=== PATIENT | female | born 1975 | race African-American/Black ===

== ENCOUNTER 2017-11-14 20:18 | Emergency (ER) | payer SELFPAY ==
[2017-11-14 20:36] VITALS: BP 164/100; PULSE 74; TEMP 98; BMI 33.4
== END 2017-11-14 22:59 | disposition left against medical advice (07) ==
LOC: JER 20:18
DX: Z53.21 Procedure and treatment not carried out due to patient leaving prior to being seen by health care provider (principal)
CPT/HCPCS: 99281-25

== ENCOUNTER 2018-08-22 09:43 | Emergency (ER) | payer SELFPAY ==
[2018-08-22 10:16] VITALS: TEMP 98.5; BMI 31.9
--- NOTE | 2018-08-22 10:54 | PDOC ---
Attending Attestation - HPI HPI: 08/22/18 12:38 The patient is a 42 year old female [id number], with a significant PMH of HTN and asthma, who presents to the emergency department complaining of abdominal cramping that began last night. The patient states the constant, sharp, and non radiating abdomen pain is located to the right lower quadrant with a severity of 7/10. She endorses associated symptoms of nausea, vomiting and chills. She states she took a test 1 week ago which was negative and her last menstrual period was 07/13. She is currently experiencing vaginal bleeding. The patient denies any vaginal odor or pain. The patient denies chest pain, shortness of breath, headache and dizziness. Denies fever, diarrhea and constipation. Denies dysuria, frequency, urgency and hematuria. Allergies: Shellfish and iodine Past surgical history: None reported Social history: None reported PCP: None reported Documentation prepared by Hal Fall, acting as pediatric medical assistant for Sruthi Nevarez DO, MD. - Physicial Exam PE: 08/22/18 12:39 GENERAL: Awake, alert, and fully oriented, in no acute distress HEAD: No signs of trauma EYES: PERRLA, EOMI, sclera anicteric, conjunctiva clear ENT: Auricles normal inspection, hearing grossly normal, nares patent, oropharynx clear without exudates. Moist mucosa NECK: Normal ROM, supple, no lymphadenopathy, JVD, or masses LUNGS: Breath sounds equal, clear to auscultation bilaterally. No wheezes, and no crackles HEART: Regular rate and rhythm, normal S1 and S2, no murmurs, rubs or gallops ABDOMEN: Soft, nontender, normoactive bowel sounds. No guarding, no rebound. No masses. GENITOURINARY: Cervical os is slightly open and blood in the vaginal vault. EXTREMITIES: Normal range of motion, no edema. No clubbing or cyanosis. No cords, erythema, or tenderness NEUROLOGICAL: Cranial nerves II through XII grossly intact. Normal speech, normal gait SKIN: Warm, Dry, normal turgor, no rashes or lesions noted Documentation prepared by Hal Fall, acting as pediatric medical assistant for Sruthi Nevarez DO, MD. <Hal Fall - Last Filed: 08/22/18 12:38> - Resident Resident Name: Jevon Springer - ED Attending Attestation I have performed the following: I have examined & evaluated the patient, The case was reviewed & discussed with the resident, I agree w/resident's findings & plan, Exceptions are as noted - Medical Decision Making 08/22/18 10:54 I, Dr. Sruthi Nevarez, DO, attest that this document has been prepared under my direction and personally reviewed by me in its entirety. I further attest, that it accurately reflects all work, treatment, procedures and medical decision -making performed by me. 08/22/18 11:35 a/p: 42yo female with FDLMP 07/13 -pt with pelvic cramping -vaginal bleeding started today -concern for DUB vs early preg with bleeding vs miscarriage -will send labs, ua, ucx, ucg, beta, tvus -will monitor and reassess 08/22/18 12:23 urine preg and beta are negative pt updated on labs 08/22/18 13:42 pt with elevated bp will start [facility] has appt with SLIP COVER OPERATOR for stable for dc to home <Sruthi Nevarez - Last Filed: 08/22/18 13:43>
--- NOTE | 2018-08-22 11:13 | PDOC ---
History of Present Illness - General Chief Complaint: Pain, Acute Stated Complaint: ABD PAIN Time Seen by Provider: 08/22/18 10:53 History Source: Patient Exam Limitations: No Limitations - History of Present Illness Initial Comments: 42 yo F hx of asthma, HTN presents w R sided abdominal pain since 9 pm last night. sudden onset, sharp pain, subsided by itself, then again at 4 am she awoke from the pain had nausea, vomiting which she says was non-bilious but contained streaks of blood at one point. She hasn't vomited since 4 am. 7/10 constant pain in the RLQ. She denies any fevers, endorses chills. No diarrhea, no Dysuria. She said she missed her period 3 weeks ago and hasn't come. She is on a contraception implant. There is blood coming out of her vagina. - 1 miscarriage, 1 . PCP: None Social Hx: Denies smoking, drinking, or other substance usage Allergies: Shellfish and iodine Past History - Past Medical History Allergies/Adverse Reactions: Allergies Allergy/AdvReac Type Severity Reaction Status Date / Time iodine Allergy Verified 08/22/18 10:13 shellfish derived Allergy Verified 08/22/18 10:13 Home Medications: Ambulatory Orders Amlodipine Besylate [Norvasc -] 5 mg PO DAILY #7 tablet 08/22/18 COPD: No - Suicide/Smoking/Psychosocial Hx Smoking History: Never smoked Have you smoked in the past 12 months: No Hx Alcohol Use: No Drug/Substance Use Hx: No Review of Systems - Review of Systems Able to Perform ROS?: Yes Constitutional: No: Chills, Diaphoresis, Fever, Loss of Appetite, Malaise HEENTM: No: Blurred Vision, Double Vision Respiratory: No: Cough, Wheezing, Productive cough Cardiac (ROS): No: Chest Pain, Edema, Irregular Heart Rate ABD/GI: Yes: Nausea, Poor Fluid Intake, Abdominal cramping. No: Abdominal Distended, Constipated, Diarrhea, Vomiting : Yes: Burning, Dysuria, Discharge (blood), Hematuria. No: Frequency, Flank Pain Musculoskeletal: No: Back Pain, Muscle Pain, Neck Pain Integumentary: No: Bruising, Change in Color, Change in Hair/Nails, Dryness, Erythema Neurological: Yes: Headache. No: Numbness, Paresthesia, Seizure, Tingling Psychiatric: Yes: Anxiety, Depression, Stressors, Sleep Pattern Change Endocrine: No: Excessive Sweating, Flushing Hematologic/Lymphatic: No: Anemia, Blood Clots, Easy Bleeding *Physical Exam - Vital Signs Last Vital Signs Temp Pulse Resp BP Pulse Ox 98.5 F 89 16 175/109 H 99 08/22/18 10:14 08/22/18 10:14 08/22/18 10:14 08/22/18 10:14 08/22/18 10:14 - Physical Exam General Appearance: Yes: Nourished, Appropriately Dressed, Obese. No: Apparent Distress HEENT: positive: EOMI, JC, Normal ENT Inspection, Normal Voice Neck: positive: Supple. negative: Rigid Respiratory/Chest: positive: Lungs Clear, Normal Breath Sounds. negative: Crackles Cardiovascular: positive: Regular Rhythm, Regular Rate, S1, S2. negative: Edema , JVD Vascular Pulses: Dorsalis-Pedis (R): 2+, Doralis-Pedis (L): 2+ Female Pelvic Exam: positive: normal external exam, normal adnexa, normal size ovaries, discharge (Blood), vaginal bleeding, other (Cervix is mildly open - 1 fingerwidth). negative: cervical os closed, CMT, lesions, Bartholin mass, adnexal tenderness Gastrointestinal/Abdominal: positive: Normal Bowel Sounds, Tender (RLQ), Soft. negative: Guarding, Rebound Rectal Exam: positive: deferred Lymphatic: negative: Adenopathy Musculoskeletal: positive: Normal Inspection. negative: CVA Tenderness, Decreased Range of Motion Extremity: positive: Normal Capillary Refill, Normal Inspection, Normal Range of Motion Integumentary: positive: Normal Color, Dry, Warm Neurologic: positive: pocketbook maker II-XII NML intact, Fully Oriented, Alert, Normal Response, Motor Strength 5/5, Depressed Affect Moderate Sedation - Procedure Monitoring Vital Signs: Procedure Monitoring Vital Signs Temperature 98.5 F 08/22/18 10:14 Pulse Rate 89 08/22/18 10:14 Respiratory Rate 16 08/22/18 10:14 Blood Pressure 175/109 H 08/22/18 10:14 O2 Sat by Pulse Oximetry (%) 99 08/22/18 10:14 ED Treatment Course - LABORATORY CBC & Chemistry Diagram: 08/22/18 11:40 08/22/18 11:40 Medical Decision Making - Medical Decision Making 42 yo F hx of asthma, HTN presents w R sided abdominal pain since 9 pm last night. DDx IBNLT: vs ectopic vs ruptured vs inevitable, threatened, UTI/pylo, appendicitis Plan: Cbc, Cmp, Type and screen, ua, uc, hcg, trichomonas, TVUS, IV hydration, re-assess. I placed a 22 gauge i the left AC and sent labs. - Labs unremarkable. - HCG negative - Blood in vaginal vault on pelvic exam - US showed no acute pathology. Repeat BP is 151/107 - She has a INFORMATION SERVICES MANAGER appt scheduled with Dr. Lopez on . - Patient says she will schedule follow up w pcp this week. *DC/Admit/Observation/Transfer Diagnosis at time of Disposition: Pelvic pain, Dysfunctional uterine bleeding - Discharge Dispostion Disposition: HOME Condition at time of disposition: Improved Decision to Admit order: No - Prescriptions Prescriptions: Amlodipine Besylate [Norvasc -] 5 mg PO DAILY #7 tablet - Referrals Referrals: [facility] [Provider Group] - Patient Instructions Printed Discharge Instructions: DI for Abnormal Uterine Bleeding Additional Instructions: You came into the ER with lower abdominal pain. We looked at your blood and urine and found no problems. You are not . We also did an ultrasound which showed no problems. It is important to have a follow up scheduled with your childcare attendant this week. You blood pressure is elevated here so we are giving you a medication to take for the next week until you are able to schedule an appointment with a new primary care doctor. - We are sending a medication to your pharmacy to take for the next week once a day to help with your blood pressure. [facility] - please call them up to have an appointment scheduled. Please come back to the ER if your pain worsens, your start vomiting, or have any other new or worsening concerns. Thank you for coming to the [facility] ER. We hope you feel better soon! Print Language: TAMAZIGHT - Post Discharge Activity
[2018-08-22 11:40] LABS: URINE APPEARANCE SLCLOUDY; URINE BILIRUBIN NEGATIVE (<2.0 mg/dL); URINE COLOR LTYELLOW; URINE GLUCOSE (UA) NEGATIVE (NEGATIVE); URINE KETONE NEGATIVE (NEGATIVE); URINE LEUK ESTERASE NEGATIVE (NEGATIVE); URINE NITRITE NEGATIVE (NEGATIVE); URINE PROTEIN NEGATIVE (NEGATIVE); URINE UROBILINOGEN NEGATIVE mg/dL (0.2-1.0)
[2018-08-22 11:41] LABS: HCG,QUALITATIVE URINE Negative
[2018-08-22] MEDS ORDERED: SODIUM CHLORIDE 0.9% 500 ML INFUS.BAG IV ONE (11:44)
[2018-08-22 11:45] LABS: HEMATOCRIT 39.3 % (32.4-45.2); HEMOGLOBIN 13.8 GM/dL (10.7-15.3); LYMPH % 17.5 % (8-40); MCH 29.9 pg (25.7-33.7); MCHC 35.1 g/dl (32.0-36.0); MEAN CELL VOLUME 85.1 fl (80-96); MEAN PLT VOLUME 10.5 fl (7.5-11.1); MONO % 4.7 % (3.8-10.2); NEUT % 75.8 % (42.8-82.8); PLATELET COUNT 300 K/MM3 (134-434); RBC 4.62 M/mm3 (3.60-5.2); WHITE BLOOD COUNT 10.5 K/mm3 (4.0-10.0)
[2018-08-22 11:45] LABS: EPI CELLS MANY /HPF (FEW); URINE BACTERIA RARE /hpf (NONE SEEN); URINE MUCUS RARE
[2018-08-22] MEDS ORDERED: ACETAMINOPHEN 325 MG TABLET (FP) PO ONE (11:49)
[2018-08-22] MEDS ORDERED: ACETAMINOPHEN 325 MG TABLET (FP) ONE (12:04)
[2018-08-22 12:07] LABS: ALBUMIN 3.9 g/dl (3.4-5.0); ALK PHOS 100 U/L (45-117); ANION GAP 7 MMOL/L (8-16); BILIRUBIN,TOTAL 0.5 mg/dL (0.2-1); BLOOD UREA NITROGEN 8 mg/dL (7-18); CALCIUM 9.1 mg/dL (8.5-10.1); CHLORIDE 105 mmol/L (98-107); CO2 27 mmol/L (21-32); CREATININE 0.9 mg/dL (0.55-1.3); GLUCOSE,RANDOM 92 mg/dL (74-106); SGOT/AST 20 U/L (15-37); SGPT/ALT 19 U/L (13-61); SODIUM 139 mmol/L (136-145); TOT PROT 8.5 g/dl (6.4-8.2)
[2018-08-22 15:20] VITALS: BP 179/98; PULSE 88
== END 2018-08-22 14:30 | disposition home or self-care (01) ==
LOC: JER 09:43
DX: R10.2 Pelvic and perineal pain (principal); N93.8 Other specified abnormal uterine and vaginal bleeding; I10 Essential (primary) hypertension; J45.909 Unspecified asthma, uncomplicated
CPT/HCPCS: 36415; 76830-TC; 80053; 81003; 81015; 84702; 84703; 85025; 86850; 86900; 86901; 87086; 87491; 87591; 87661; 99282-25